=== PATIENT | female | born 1955 | race Caucasian/White ===

== ENCOUNTER 2020-12-27 15:58 | Inpatient (IN) | payer MEDICARE ==
[2020-12-27 21:43] VITALS: BMI 21.3
[2020-12-27 21:47] LABS: Anion Gap 15 mmol/L (10-20); BUN (Urea Nitrogen) 63 mg/dL (9.8-20.1); Calc. Creatinine Clearance 23 mL/min (70-130); Carbon Dioxide 19 mmol/L (23-31); Chloride 110 mmol/L (98-107); Glucose 194 mg/dL (80-115); Potassium 6.4 mmol/L (3.5-5.1); Sodium 138 mmol/L (136-145)
[2020-12-28] MEDS ORDERED: Albuterol Sulfate 2.5 mg/3 ml Neb NEB PRN (00:08)
[2020-12-28 04:59] LABS: Anion Gap 14 mmol/L (10-20); BUN (Urea Nitrogen) 64 mg/dL (9.8-20.1); Calc. Creatinine Clearance 24 mL/min (70-130); Calcium 8.9 mg/dL (7.8-10.44); Carbon Dioxide 19 mmol/L (23-31); Chloride 110 mmol/L (98-107); Glucose 195 mg/dL (80-115); Potassium 6.1 mmol/L (3.5-5.1); Sodium 137 mmol/L (136-145)
[2020-12-28] MEDS ORDERED: Dextrose 5% in Water 1,000 ML IV PRN (06:23)
[2020-12-28] MEDS ORDERED: Dextrose 50% Abboject 50 ML SYRINGE SLOW IVP PRN (06:23)
[2020-12-28] MEDS: HumaLOG 300 UNITS/3 ML VIAL SC PRN ×2 (07:08→17:46)
[2020-12-28] MEDS ORDERED: Ondansetron ODT 4 MG TAB PO PRN (07:37)
[2020-12-28] MEDS ORDERED: Polyethylene Glycol 3350 17 GM Packet PO SCH (07:45)
[2020-12-28] MEDS ORDERED: Sodium Chloride 0.9% 1,000 ML IV SCH (07:45)
[2020-12-28 09:03] LABS: Potassium 6.1 mmol/L (3.5-5.1)
[2020-12-28] MEDS: Carvedilol 3.125 MG TAB PO SCH ×2 (09:08→21:21)
[2020-12-28] MEDS: Aspirin 81 mg Enteric Coated Tablet PO SCH (09:08)
[2020-12-28] MEDS: Furosemide 80 MG TAB PO SCH (09:08)
[2020-12-28 09:12] LABS: ALT (SGPT) 13 U/L (8-55); AST (SGOT) 14 U/L (5-34); Albumin 3.1 g/dL (3.4-4.8); Alkaline Phosphatase 95 U/L (40-110); Anion Gap 11 mmol/L (10-20); BUN (Urea Nitrogen) 63 mg/dL (9.8-20.1); Bilirubin, Total 0.5 mg/dL (0.2-1.2); Calc. Creatinine Clearance 25 mL/min (70-130); Calcium 8.7 mg/dL (7.8-10.44); Carbon Dioxide 19 mmol/L (23-31); Chloride 113 mmol/L (98-107); Globulin 2.4 g/dL (2.4-3.5); Glucose 158 mg/dL (80-115); Protein, Total 5.5 g/dL (5.8-8.1); Sodium 137 mmol/L (136-145)
[2020-12-28] MEDS ORDERED: LOKELMA 10 GM PACKET PO SCH (12:00)
[2020-12-28] MEDS: Sodium Chloride 0.9% 1,000 ML IV SCH (12:13)
[2020-12-28] MEDS: Albumin 25% 25 GM/100 ML BOT IVPB SCH ×2 (12:13→17:17)
[2020-12-28 13:26] LABS: Potassium 5.7 mmol/L (3.5-5.1)
[2020-12-28] MEDS: Sodium Bicarbonate Tab 325 MG TAB PO SCH ×2 (14:56→21:21)
[2020-12-28 18:01] LABS: Potassium 5.6 mmol/L (3.5-5.1)
[2020-12-28 21:17] LABS: Potassium 5.2 mmol/L (3.5-5.1)
[2020-12-28] MEDS: Atorvastatin Calcium 40 MG TAB PO SCH (21:21)
[2020-12-28] MEDS: traZODone HCl 50 MG TAB PO SCH (21:22)
[2020-12-29] MEDS: Albumin 25% 25 GM/100 ML BOT IVPB SCH ×2 (00:51→06:51)
[2020-12-29 01:22] LABS: Potassium 5.6 mmol/L (3.5-5.1)
[2020-12-29] MEDS ORDERED: Furosemide 40 MG/4 ML VIAL ONE (03:01)
[2020-12-29 03:15] LABS: Actual Bicarbonate (HCO3a) 17.5 mEq/L (22-28); Base Excess (BEa) -11.6 mEq/L (-2.0 to +3.0); Carboxyhemoglobin (COHb) 0.4 gm% (0.0-3.0); Hemoglobin (Hb) 9.1 g/dL (12.0-16.0); Potassium - ABG Lab 6.43 mmol/L (3.70-5.30)
[2020-12-29 03:26] LABS: pH, Arterial 7.11 (7.35-7.45)
[2020-12-29 03:27] LABS: Puncture Site RRA
[2020-12-29] MEDS ORDERED: Albuterol Sulfate 2.5 mg/0.5 ml Neb ONE (03:29)
[2020-12-29 03:58] LABS: ALT (SGPT) 12 U/L (8-55); AST (SGOT) 13 U/L (5-34); Albumin 4.3 g/dL (3.4-4.8); Alkaline Phosphatase 95 U/L (40-110); Anion Gap 19 mmol/L (10-20); BUN (Urea Nitrogen) 62 mg/dL (9.8-20.1); Bilirubin, Total 0.7 mg/dL (0.2-1.2); Calc. Creatinine Clearance 22 mL/min (70-130); Calcium 8.7 mg/dL (7.8-10.44); Carbon Dioxide 15 mmol/L (23-31); Chloride 109 mmol/L (98-107); Globulin 2.9 g/dL (2.4-3.5); Glucose 347 mg/dL (80-115); Iron 54 ug/dL (50-170); Iron Binding Capacity, Total 178 mcg/dL (265-497); Magnesium 2.1 mg/dL (1.6-2.6); Potassium 6.3 mmol/L (3.5-5.1); Protein, Total 7.2 g/dL (5.8-8.1); Sodium 137 mmol/L (136-145)
[2020-12-29] MEDS ORDERED: Insulin Regular 300 UNITS/3 ML VIAL IVP SCH (04:00)
[2020-12-29 04:12] LABS: Vitamin D, 25 Hydroxy 18.3 ng/ml (> 30.0)
[2020-12-29 04:18] LABS: Mean Corpuscular HGB CONC 33.5 g/dL (32.0-36.0); Mean Corpuscular Hemoglobin 30.1 pg (27.0-31.0); Mean Corpuscular Volume 89.9 fL (78.0-98.0); Mean Platelet Volume 8.2 fL (7.4-10.4); Platelet Count 311 thou/uL (130-400); RBC Distribution Width 12.2 % (11.5-14.5); Red Blood Cell (RBC) Count 2.99 mill/uL (4.20-5.40); White Blood Cell (WBC) Count 34.2 thou/uL (4.8-10.8)
[2020-12-29 04:48] LABS: Ferritin 333.72 ng/mL (10-291)
[2020-12-29 05:26] LABS: Band 2 % (5-11); Eosinophils 14 % (0-10); Lymphocytes 14 % (21-51); MDiff Complete? YES; Monocytes 3 % (0-10); Neutrophil 64 % (42-75); Platelet Morphology Comment Appears Adequate; RBC Morphology Normal; Reactive Lymphocytes 1 % (0-10)
[2020-12-29] MEDS: Sodium Chloride 0.9% 1,000 ML IV SCH (05:38)
[2020-12-29 06:52] LABS: Potassium 4.9 mmol/L (3.5-5.1)
[2020-12-29] MEDS: HumaLOG 300 UNITS/3 ML VIAL SC PRN ×3 (06:52→16:53)
[2020-12-29] MEDS: Carvedilol 3.125 MG TAB PO SCH ×2 (08:43→21:13)
[2020-12-29] MEDS: Furosemide 80 MG TAB PO SCH (08:43)
[2020-12-29] MEDS: Sodium Bicarbonate Tab 325 MG TAB PO SCH ×3 (08:43→21:20)
[2020-12-29] MEDS: Aspirin 81 mg Enteric Coated Tablet PO SCH (08:43)
[2020-12-29 11:10] LABS: Actual Bicarbonate (HCO3v) 23 mEq/L (22-28); Base Excess -1.5 mEq/L (-2.0 to +3.0); Calcium, Ionized (venous) 1.07 mmol/L (1.16-1.32); Chloride (VBG) 112 mmol/L (98-106); Hemoglobin (Hb) 6.8 g/dL (11.7-16.1); Potassium (VBG) 5.46 mmol/L (3.70-5.30); Sodium 141.2 mmol/L (133-146)
[2020-12-29] MEDS: Furosemide 40 MG/4 ML VIAL SLOW IVP SCH (16:52)
[2020-12-29] MEDS: Heparin 5,000 UNITS/ML VIAL SC SCH (21:14)
[2020-12-29] MEDS: Famotidine 20 MG TAB PO SCH (21:14)
[2020-12-29] MEDS: Atorvastatin Calcium 40 MG TAB PO SCH (21:17)
[2020-12-29] MEDS: Lantus 1000 UNITS/10 ML VIAL SC SCH (21:18)
[2020-12-29 22:45] LABS: Anion Gap 17 mmol/L (10-20); BUN (Urea Nitrogen) 57 mg/dL (9.8-20.1); Calc. Creatinine Clearance 23 mL/min (70-130); Calcium 9.3 mg/dL (7.8-10.44); Carbon Dioxide 21 mmol/L (23-31); Chloride 112 mmol/L (98-107); Glucose 184 mg/dL (80-115); Potassium 5.1 mmol/L (3.5-5.1); Sodium 145 mmol/L (136-145)
[2020-12-29] MEDS: traZODone HCl 50 MG TAB PO SCH (23:17)
[2020-12-30] MEDS: HumaLOG 300 UNITS/3 ML VIAL SC PRN ×2 (07:21→20:36)
[2020-12-30] MEDS: Furosemide 40 MG/4 ML VIAL SLOW IVP SCH ×2 (07:22→14:57)
[2020-12-30] MEDS: Carvedilol 3.125 MG TAB PO SCH ×2 (09:05→20:36)
[2020-12-30] MEDS: Sodium Bicarbonate Tab 325 MG TAB PO SCH ×3 (09:05→20:36)
[2020-12-30] MEDS: Aspirin 81 mg Enteric Coated Tablet PO SCH (09:06)
[2020-12-30] MEDS: Heparin 5,000 UNITS/ML VIAL SC SCH ×2 (09:06→20:36)
[2020-12-30] MEDS: Famotidine 20 MG TAB PO SCH ×2 (09:06→20:36)
[2020-12-30 11:41] LABS: Anion Gap 16 mmol/L (10-20); BUN (Urea Nitrogen) 59 mg/dL (9.8-20.1); Calc. Creatinine Clearance 24 mL/min (70-130); Calcium 9.2 mg/dL (7.8-10.44); Carbon Dioxide 21 mmol/L (23-31); Chloride 110 mmol/L (98-107); Sodium 142 mmol/L (136-145)
[2020-12-30 13:36] LABS: Hemoglobin 7.9 g/dL (12.0-16.0); Manual Diff?? YES; Mean Corpuscular HGB CONC 32.6 g/dL (32.0-36.0); Mean Corpuscular Hemoglobin 28.8 pg (27.0-31.0); Mean Corpuscular Volume 88.2 fL (78.0-98.0); Mean Platelet Volume 8.7 fL (7.4-10.4); Platelet Count 144 thou/uL (130-400); RBC Distribution Width 12.1 % (11.5-14.5); Red Blood Cell (RBC) Count 2.79 mill/uL (4.20-5.40); White Blood Cell (WBC) Count 11.2 thou/uL (4.8-10.8)
[2020-12-30 13:37] LABS: Eosinophils 9 % (0-10); Hypochromia SLIGHT = 6-15 cells (100X) (0-5/hpf); Lymphocytes 21 % (21-51); MDiff Complete? YES; Monocytes 10 % (0-10); Neutrophil 60 % (42-75)
[2020-12-30 13:38] LABS: Platelet Morphology Comment Appears Adequate
[2020-12-30] MEDS: Lantus 1000 UNITS/10 ML VIAL SC SCH (20:35)
[2020-12-30] MEDS: Atorvastatin Calcium 40 MG TAB PO SCH (20:36)
[2020-12-30] MEDS: traZODone HCl 50 MG TAB PO SCH (20:37)
[2020-12-31 03:59] LABS: Hemoglobin A1c 8.3 % (4.0-6.0)
[2020-12-31 04:11] LABS: Anion Gap 15 mmol/L (10-20); BUN (Urea Nitrogen) 65 mg/dL (9.8-20.1); Calc. Creatinine Clearance 23 mL/min (70-130); Calcium 8.6 mg/dL (7.8-10.44); Carbon Dioxide 22 mmol/L (23-31); Chloride 107 mmol/L (98-107); Glucose 221 mg/dL (80-115); Potassium 4.5 mmol/L (3.5-5.1); Sodium 139 mmol/L (136-145)
[2020-12-31 05:29] LABS: #Eosinphils 0.8 thou/uL (0.0-0.7); #Lymphocytes 0.8 thou/uL (1.20-3.40); #Monocytes 0.6 thou/uL (0.11-0.59); #Neutrophils 3.7 thou/uL (1.40-6.50); %Basophils 0.7 % (0.0-1.0); %Eosinophils 13.3 % (0.0-10.0); %Lymphocytes 13.6 % (21.0-51.0); %Monocytes 10.3 % (0.0-10.0); Hemoglobin 6.3 g/dL (12.0-16.0); Mean Corpuscular HGB CONC 34.1 g/dL (32.0-36.0); Mean Corpuscular Hemoglobin 30.4 pg (27.0-31.0); Mean Platelet Volume 8.9 fL (7.4-10.4); Platelet Count 100 thou/uL (130-400); Platelet Morphology Comment Appears Decreased; Red Blood Cell (RBC) Count 2.09 mill/uL (4.20-5.40)
[2020-12-31] MEDS: Furosemide 40 MG/4 ML VIAL SLOW IVP SCH ×2 (05:50→14:25)
[2020-12-31] MEDS: HumaLOG 300 UNITS/3 ML VIAL SC PRN ×2 (05:51→21:24)
[2020-12-31 06:44] LABS: Hemoglobin 7.3 g/dL (12.0-16.0)
[2020-12-31] MEDS: Sodium Bicarbonate Tab 325 MG TAB PO SCH ×3 (09:10→21:19)
[2020-12-31] MEDS: Carvedilol 3.125 MG TAB PO SCH ×2 (09:10→21:20)
[2020-12-31 15:06] LABS: Hemoglobin 7.3 g/dL (12.0-16.0)
[2020-12-31 15:31] LABS: Iron Binding Capacity, Total 163 mcg/dL (265-497)
[2020-12-31 15:32] LABS: Iron 35 ug/dL (50-170)
[2020-12-31 15:56] LABS: Ferritin 284.5 ng/mL (10-291)
[2020-12-31] MEDS: Atorvastatin Calcium 40 MG TAB PO SCH (21:20)
[2020-12-31] MEDS: Famotidine 20 MG TAB PO SCH (21:20)
[2020-12-31] MEDS: traZODone HCl 50 MG TAB PO SCH (21:20)
[2020-12-31] MEDS: Lantus 1000 UNITS/10 ML VIAL SC SCH (21:21)
[2021-01-01 04:05] LABS: #Basophils 0.1 thou/uL (0.0-0.2); #Eosinphils 1.3 thou/uL (0.0-0.7); #Monocytes 0.6 thou/uL (0.11-0.59); #Neutrophils 2.6 thou/uL (1.40-6.50); %Basophils 0.9 % (0.0-1.0); %Eosinophils 23.9 % (0.0-10.0); %Lymphocytes 17.5 % (21.0-51.0); %Monocytes 11.4 % (0.0-10.0); %Neutrophils 46.3 % (42.0-75.0); Hemoglobin 7.5 g/dL (12.0-16.0); Mean Corpuscular HGB CONC 34.6 g/dL (32.0-36.0); Mean Corpuscular Hemoglobin 30.5 pg (27.0-31.0); Mean Corpuscular Volume 88.2 fL (78.0-98.0); Mean Platelet Volume 8.6 fL (7.4-10.4); Platelet Count 99 thou/uL (130-400); Red Blood Cell (RBC) Count 2.47 mill/uL (4.20-5.40); White Blood Cell (WBC) Count 5.5 thou/uL (4.8-10.8)
[2021-01-01 04:24] LABS: Anion Gap 14 mmol/L (10-20); BUN (Urea Nitrogen) 68 mg/dL (9.8-20.1); Calc. Creatinine Clearance 23 mL/min (70-130); Calcium 8.6 mg/dL (7.8-10.44); Carbon Dioxide 23 mmol/L (23-31); Chloride 104 mmol/L (98-107); Glucose 158 mg/dL (80-115); Potassium 4.1 mmol/L (3.5-5.1); Sodium 137 mmol/L (136-145)
[2021-01-01] MEDS: Furosemide 40 MG/4 ML VIAL SLOW IVP SCH ×2 (06:14→14:06)
[2021-01-01] MEDS: Sodium Bicarbonate Tab 325 MG TAB PO SCH ×3 (09:46→22:53)
[2021-01-01] MEDS: Carvedilol 3.125 MG TAB PO SCH ×2 (09:46→22:52)
[2021-01-01 11:25] LABS: Glucose 262 mg/dL (80-115)
[2021-01-01] MEDS ORDERED: Furosemide 20 MG/2 ML VIAL SLOW IVP PRN (15:34)
[2021-01-01] MEDS: HumaLOG 300 UNITS/3 ML VIAL SC PRN (16:46)
[2021-01-01 18:29] VITALS: BP 130/58
[2021-01-01] MEDS: traZODone HCl 50 MG TAB PO SCH (22:52)
[2021-01-01] MEDS: Atorvastatin Calcium 40 MG TAB PO SCH (22:52)
[2021-01-01] MEDS: Famotidine 20 MG TAB PO SCH (22:52)
[2021-01-01] MEDS: Lantus 1000 UNITS/10 ML VIAL SC SCH (22:54)
[2021-01-01] MEDS: Acetaminophen 325 MG TAB PO PRN (23:05)
[2021-01-02 04:53] LABS: Anion Gap 16 mmol/L (10-20); BUN (Urea Nitrogen) 69 mg/dL (9.8-20.1); Calc. Creatinine Clearance 25 mL/min (70-130); Calcium 8.8 mg/dL (7.8-10.44); Carbon Dioxide 25 mmol/L (23-31); Chloride 101 mmol/L (98-107); Glucose 166 mg/dL (80-115); Potassium 4.1 mmol/L (3.5-5.1); Sodium 138 mmol/L (136-145)
[2021-01-02 05:20] LABS: Eosinophils 25 % (0-10); Hemoglobin 10.3 g/dL (12.0-16.0); Lymphocytes 12 % (21-51); MDiff Complete? YES; Mean Corpuscular HGB CONC 34.9 g/dL (32.0-36.0); Mean Corpuscular Hemoglobin 31.4 pg (27.0-31.0); Mean Platelet Volume 8.7 fL (7.4-10.4); Monocytes 4 % (0-10); Neutrophil 58 % (42-75); Platelet Count 122 thou/uL (130-400); Platelet Morphology Comment Appears Decreased; RBC Distribution Width 12.5 % (11.5-14.5); RBC Morphology Normal; Reactive Lymphocytes 1 % (0-10); Red Blood Cell (RBC) Count 3.28 mill/uL (4.20-5.40); White Blood Cell (WBC) Count 8.6 thou/uL (4.8-10.8)
[2021-01-02] MEDS ORDERED: diphenhydrAMINE 25 MG CAP PO SCH (05:30)
[2021-01-02] MEDS: Furosemide 40 MG/4 ML VIAL SLOW IVP SCH ×2 (06:04→14:13)
[2021-01-02] MEDS: Carvedilol 3.125 MG TAB PO SCH ×2 (10:12→21:39)
[2021-01-02] MEDS: Aspirin 81 mg Enteric Coated Tablet PO SCH (10:12)
[2021-01-02] MEDS: Sodium Bicarbonate Tab 325 MG TAB PO SCH ×3 (10:12→21:39)
[2021-01-02] MEDS: HumaLOG 300 UNITS/3 ML VIAL SC PRN ×2 (11:26→21:44)
[2021-01-02] MEDS ORDERED: diphenhydrAMINE 25 MG CAP PO PRN (20:50)
[2021-01-02] MEDS: Atorvastatin Calcium 40 MG TAB PO SCH (21:39)
[2021-01-02] MEDS: Famotidine 20 MG TAB PO SCH (21:39)
[2021-01-02] MEDS: Lantus 1000 UNITS/10 ML VIAL SC SCH (21:40)
[2021-01-02] MEDS: traZODone HCl 50 MG TAB PO SCH (21:40)
[2021-01-03] MEDS: Furosemide 40 MG/4 ML VIAL SLOW IVP SCH ×2 (06:42→16:28)
[2021-01-03] MEDS: HumaLOG 300 UNITS/3 ML VIAL SC PRN (06:42)
[2021-01-03] MEDS: Sodium Bicarbonate Tab 325 MG TAB PO SCH ×2 (09:56→16:28)
[2021-01-03] MEDS: Carvedilol 3.125 MG TAB PO SCH (09:56)
[2021-01-03] MEDS: Aspirin 81 mg Enteric Coated Tablet PO SCH (09:56)
[2021-01-03 14:06] VITALS: TEMP 99
[2021-01-03] MEDS: Acetaminophen 325 MG TAB PO PRN (16:29)
== END 2021-01-03 16:32 | disposition home or self-care (01) | DRG 682 ==
LOC: 2NO 15:58 → CCU 12-29 03:23 → OBSVTOIN 12-29 09:14 → IMCU/EMU 12-30 18:06
PROVIDERS: ADMIT Internal Medicine; ATTEND Internal Medicine
PROC: 5A09357 Assistance with Respiratory Ventilation, Less than 24 Consecutive Hours, Continuous Positive Airway Pressure (ICD-10-PCS; principal; 2020-12-29)
PROC: 30283B1 Transfusion of Nonautologous 4-Factor Prothrombin Complex Concentrate into Vein, Percutaneous Approach (ICD-10-PCS; 2021-01-01)
DX: N17.9 Acute kidney failure, unspecified (principal); J96.21 Acute and chronic respiratory failure with hypoxia; J96.22 Acute and chronic respiratory failure with hypercapnia; G93.41 Metabolic encephalopathy; I13.0 Hypertensive heart and chronic kidney disease with heart failure and stage 1 through stage 4 chronic kidney disease, or unspecified chronic kidney disease; E87.2 Acidosis; J44.1 Chronic obstructive pulmonary disease with (acute) exacerbation; Z20.822 Contact with and (suspected) exposure to COVID-19; N18.4 Chronic kidney disease, stage 4 (severe); I25.10 Atherosclerotic heart disease of native coronary artery without angina pectoris; E78.5 Hyperlipidemia, unspecified; D63.1 Anemia in chronic kidney disease; K70.30 Alcoholic cirrhosis of liver without ascites; E88.09 Other disorders of plasma-protein metabolism, not elsewhere classified; K21.9 Gastro-esophageal reflux disease without esophagitis; E11.22 Type 2 diabetes mellitus with diabetic chronic kidney disease; E55.9 Vitamin D deficiency, unspecified; I50.9 Heart failure, unspecified; Z90.710 Acquired absence of both cervix and uterus; Z87.891 Personal history of nicotine dependence; Z79.82 Long term (current) use of aspirin; Z79.51 Long term (current) use of inhaled steroids; Z79.899 Other long term (current) drug therapy
CPT/HCPCS: 36415; 36416; 36430; 36600; 71045; 71046; 76770; 80048; 82306; 82570; 82607; 82728; 82805; 83036; 83540; 83550; 83735; 83970; 84132; 84156; 85025; 86850; 86900; 86901; 93005; 93010; 94660; 96374; 96375; 96376; G0378; J1644; J1815; J1940; J7050; J7611; J7620; P9016; P9047; Q0163